=== PATIENT | female | born 1995 | race Caucasian/White ===

== ENCOUNTER 2019-02-19 21:39 | Emergency (ER) | payer MEDICAID ==
--- NOTE | 2019-02-19 22:20 | NUR ---
STATING. "I DONT WANT TO WAIT. THESE ARE MENTAL HEALTH ISSUES, IM JUST GOING TO LEAVE". ASKING FOR REFILLS FOR XANAX.1MG.AMITRIPTALINE 20MG. MERTAZAPINE 15MG. AWARE.
== END 2019-02-19 22:53 | disposition left against medical advice (07) ==
LOC: ER 21:39
DX: Z53.21 Procedure and treatment not carried out due to patient leaving prior to being seen by health care provider (principal)

== ENCOUNTER 2019-06-23 14:32 | Emergency (ER) | payer MEDICAID ==
[~2019-06-23] VITALS: Ht 157.5 cm; Wt 46.7 kg
--- NOTE | 2019-06-23 14:45 | NUR ---
24 YEAR OLD FEMALE C/O NAUSEA VOMITING, CHILLS x 2 DAYS FROM OXYCODONE WITHDRAWAL. ALERT AND ORIENTED X4 BREATHING EVEN AND UNLABORED WITH NO DISTRESS NOTED. SKIN WARM TO TOUCH AND INTACT. AWAITING TO BE SEEN BY
[2019-06-23] MEDS ORDERED: ONDANSETRON 4 MG TAB.RAPDIS SL ONE (15:00)
[2019-06-23] MEDS ORDERED: LORAZEPAM 1 MG TABLET PO ONE (15:00)
[2019-06-23] MEDS ORDERED: LORAZEPAM 1 MG TABLET ONE (15:08)
[2019-06-23] MEDS ORDERED: ONDANSETRON 4 MG TAB.RAPDIS ONE (15:09)
--- NOTE | 2019-06-23 15:20 | NUR ---
Patient discharged to home in stable condition. Written and verbal after care instructions given. Patient verbalizes understanding of instruction.
[2019-06-23 15:21] VITALS: BP 120/65
== END 2019-06-23 15:21 | disposition home or self-care (01) ==
LOC: ER 14:32
DX: R11.2 Nausea with vomiting, unspecified (principal); F41.9 Anxiety disorder, unspecified; F11.23 Opioid dependence with withdrawal
CPT/HCPCS: 99283; Q0162

== ENCOUNTER 2019-10-11 20:25 | Emergency (ER) | payer MEDICAID ==
[~2019-10-11] VITALS: Ht 157.5 cm; Wt 54.9 kg
[2019-10-11] MEDS ORDERED: LORAZEPAM INJ 2 MG/ML VIAL IV ONE ×2 (20:30→21:00)
[2019-10-11] MEDS ORDERED: HALOPERIDOL LACTATE INJ 5 MG/ML VIAL IV ONE (20:30)
[2019-10-11] MEDS ORDERED: LORAZEPAM INJ 2 MG/ML VIAL ONE ×2 (20:32→20:47)
[2019-10-11] MEDS ORDERED: HALOPERIDOL LACTATE INJ 5 MG/ML VIAL ONE (20:32)
--- NOTE | 2019-10-11 20:40 | NUR ---
JESSICA FROM HOME FOR BIZZARE BEHAVIOR. PT ADMITS TO DRUG USE UNKNOWN AMOUNT OR LAST TIME USED. -SI/-HI. PT SCREAMING, RESTLESS. PT SEEN & EVAL'D BY DR. IZQUIERDO. MEDICATED ORDERED. WILL CONT TO MONITOR. QIAN @ BS.
[2019-10-11] MEDS ORDERED: ZIPRASIDONE MESYLATE 20 MG/VIAL VIAL IM ONE ×2 (21:30→21:31)
[2019-10-11] MEDS ORDERED: WATER FOR INJECTION,STERILE 10 ML ONE (21:31)
--- NOTE | 2019-10-11 21:42 | NUR ---
[employer] OPER[employer] AT BEDSIDE FOR BLOOD DRAW.
[2019-10-11 21:46] LABS: BASOPHILS % (AUTO) 0.4 % (0.0-2.0); EOSINOPHILS % (AUTO) 0.6 % (0.0-6.0); HEMATOCRIT 42 % (33-45); HEMOGLOBIN 14.3 g/dL (11.5-14.8); LYMPHOCYTES # (AUTO) 2.5 /CMM (0.8-4.8); LYMPHOCYTES % (AUTO) 37.7 % (20.0-44.0); MEAN CORPUSCULAR HGB CONC 34 g/dl (31.0-36.0); MEAN CORPUSCULAR VOLUME 90 fL (82-100); MONOCYTES # (AUTO) 0.5 /CMM (0.1-1.30); MONOCYTES % (AUTO) 7.8 % (2.0-12.0); NEUTROPHILS # (AUTO) 3.5 /CMM (1.8-8.9); NEUTROPHILS % (AUTO) 53.5 % (43.0-81.0); PLATELET COUNT (AUTO) 264 /CMM (150-450); RED BLOOD CELL COUNT(AUTO) 4.68 MIL/uL (4.0-5.2); WHITE BLOOD COUNT (AUTO) 6.6 K/uL (4.3-11.0)
[2019-10-11 21:56] LABS: CREATININE 0.8 mg/dL (0.6-1.3); POTASSIUM 3.7 mmol/L (3.5-5.1)
[2019-10-11] MEDS ORDERED: IV NS 0.9% 1,000 ML BAG IV ONE (22:00)
--- NOTE | 2019-10-11 22:23 | NUR ---
[facility] - [phone] - FRIEND
[2019-10-11 22:59] LABS: APPEARANCE,URINE Clear (CLEAR); BILIRUBIN,URINE Negative (NEGATIVE); BLOOD, URINE Moderate Ery/uL (NEGATIVE); COLOR,URINE Yellow (YELLOW); KETONES,URINE Negative (NEGATIVE); LEUKOCYTE ESTERASE ,URINE Negative (NEGATIVE); NITRITE, URINE Negative (NEGATIVE); PROTEIN,URINE Trace mg/dl (NEGATIVE); UGLUCOSE Negative (NEGATIVE); UROBILINOGEN,URINE 0.2 EU/dL (0.2)
[2019-10-11 23:05] LABS: BACTERIA,URINE Rare /HPF (None Seen); RBC,URINE 21-50 /HPF (0-2); SQUAMOUS EPITHELIAL CELL,UR Few /HPF (None Seen); WBC,URINE NONE SEEN /HPF (0-3)
--- NOTE | 2019-10-12 05:31 | NUR ---
pt sleeping in gurney. no signs of distress noted. pt vtial signs stable. pt easily arousable. will cont to monitor pt.
--- NOTE | 2019-10-12 06:24 | NUR ---
IV removed. Catheter intact and site benign. Pressure and 4x4 applied to site. No bleeding noted.
--- NOTE | 2019-10-12 08:07 | NUR ---
pt sleeping quietly, NAD noted. ordered breakfast tray.
--- NOTE | 2019-10-12 08:20 | NUR ---
pt now awake, a/ox4, denies SI/HI. denies abd pain. pt reports that her boyfriends mom should be able to pick her up. Dr Anders at bedside to evaluate pt.
--- NOTE | 2019-10-12 09:17 | NUR ---
Patient discharged to home in stable condition with Leny Wall. Written and verbal after care instructions given. Patient verbalizes understanding of instruction. Ambulatory steady gait.
[2019-10-12 09:54] VITALS: BP 129/84
== END 2019-10-12 09:54 | disposition home or self-care (01) ==
LOC: ER 20:25
DX: G92 Toxic encephalopathy (principal); R41.0 Disorientation, unspecified; F11.10 Opioid abuse, uncomplicated; R00.0 Tachycardia, unspecified; R45.1 Restlessness and agitation
CPT/HCPCS: 36415; 80048; 80305; 81001; 84702; 85025; 96372; 96374; 96375; 99283; J1630; J2060 ×2; J3486; J7030; 81000-TC